=== PATIENT | male | born 1995 | race Caucasian/White ===

== ENCOUNTER 2016-09-22 15:23 | Emergency (ER) | payer OTHER ==
--- NOTE | 2016-09-22 15:29 | PDOC ---
Rapid Medical Evaluation Time Seen by Provider: 09/22/16 15:26 Medical Evaluation: 09/22/16 15:28 Otherwise healthy 20 year old male presenting with 3 days of right great toe "infection". No preceding injury. No fevers. V/s notable for P 105. -To FT for further evaluation.
[2016-09-22 15:32] VITALS: BP 152/73; PULSE 106; TEMP 98.6; BMI 21.1
--- NOTE | 2016-09-22 16:40 | PDOC ---
History of Present Illness - General Chief Complaint: Pain Stated Complaint: LT TOE INFECTION Time Seen by Provider: 09/22/16 15:26 History Source: Patient Exam Limitations: No Limitations - History of Present Illness Initial Comments: 09/22/16 19:58 Chief complaint: Right large toe on each side of toenail with yellowish discharge getting worse 3 days History of present illness: Patient is a 20-year-old male here today with tenderness on bilateral sides of his right large toenail with discharge that is yellowish and clear and slightly tender to touch. Patient reports that he cut his own toenails. Patient denies any numbness of the toe. 09/22/16 19:59 Timing/Duration: getting worse (rt. toenail inflammed large toe on each side with yellowish discharge ) Severity: moderate Associated Symptoms: reports: denies symptoms Past History - Past Medical History Allergies/Adverse Reactions: Allergies Allergy/AdvReac Type Severity Reaction Status Date / Time No Known Allergies Allergy Verified 09/22/16 15:29 Home Medications: Ambulatory Orders Ibuprofen 600 mg PO Q6H PRN #18 tablet MDD 4 09/22/16 Sulfamethoxazole/Trimethoprim [Bactrim DS -] 1 tab PO BID #13 tablet 09/22/16 Other medical history: DENIES. - Psycho/Social/Smoking Cessation Hx Suicidal Ideation: No Smoking History: Never smoked Review of Systems - Review of Systems Able to Perform ROS?: Yes Constitutional: No: Symptoms Reported HEENTM: No: Symptoms Reported Respiratory: No: Symptoms reported Cardiac (ROS): No: Symptoms Reported ABD/GI: No: Symptoms Reported : No: Symptoms Reported Integumentary: Yes: Other (granulated erythematous tissue noted rt. toe on each side of toenail with yellowish clear discharge) Neurological: No: Symptoms reported *Physical Exam - Vital Signs Last Vital Signs Temp Pulse Resp BP Pulse Ox 98.6 F 106 H 16 152/73 98 09/22/16 15:29 09/22/16 15:29 09/22/16 15:29 09/22/16 15:29 09/22/16 15:29 - Physical Exam General Appearance: Yes: Appropriately Dressed Respiratory/Chest: positive: Lungs Clear, Normal Breath Sounds Cardiovascular: positive: Regular Rhythm, Regular Rate, S1, S2 Vascular Pulses: Dorsalis-Pedis (R): 4+ Comments:: 09/22/16 16:41 Extremity: positive: Normal Range of Motion (rt.large toe) Integumentary: positive: Erythema (erythematous raised ( granulated ) skin laterally on each side of rt. first toe ) Neurologic: positive: Alert, Normal Response, Respond to painful stimul (rt. large toe), Responsive. negative: Numbness, Sensory Deficit (rt. first toe) Procedures - Consent Consent obtained: From Patient - Additional Procedures Progress: 09/22/16 16:43 Past right first toe around the toenail with normal saline 0.9% with hydrogen peroxide then irrigated with normal saline 0.9% is sterile telfa pad than DS dressing applied Medical Decision Making - Medical Decision Making 09/22/16 19:59 09/22/16 19:59 Patient is a 20-year-old male here today with tenderness on bilateral sides of his right large toenail with discharge that is yellowish and clear and slightly tender to touch. Patient reports that he cut his own toenails. Patient denies any numbness of the toe. Right large toenail ingrown toenail noted Plan: Cleansed right large toenail with saline 0.9% minutes with hydrogen peroxide then irrigated area with normal saline 0.9% dried area and applied Xeroform dressing with Telfa and Kane Bactrim DS one tab now than twice a day 7 days Patient to follow up with rolling machine operator automatic tomorrow Ibuprofen 600 mg by mouth then every 6 hours as needed for pain 09/22/16 20:00 *DC/Admit/Observation/Transfer Diagnosis at time of Disposition: Ingrowing toenail with infection - Discharge Dispostion Disposition: HOME Condition at time of disposition: Stable - Prescriptions Prescriptions: Sulfamethoxazole/Trimethoprim [Bactrim DS -] 1 tab PO BID #13 tablet Ibuprofen 600 mg PO Q6H PRN #18 tablet MDD 4 PRN Reason: Pain - Referrals Referrals: Ric Parsons MD [Primary Care Provider] - Cornelius Cheng MD [Staff Physician] - - Patient Instructions Additional Instructions: Follow Up with rolling machine operator automatic tomorrow Keep Dressing on toe and to use the rolling machine operator automatic tomorrow Return to emergency room if an increased redness around right toe or fever Patient voiced understanding of discharge instructions and all questions were answered
[2016-09-22] MEDS ORDERED: SULFAMETHOXAZOLE/TRIMETHOPRIM 800MG/160MG D.S. TABLET PO ONE (16:45)
[2016-09-22] MEDS ORDERED: SULFAMETHOXAZOLE/TRIMETHOPRIM 800MG/160MG D.S. TABLET ONE (17:16)
== END 2016-09-22 17:36 | disposition home or self-care (01) ==
LOC: JERFT 15:23
DX: L60.0 Ingrowing nail (principal); L08.9 Local infection of the skin and subcutaneous tissue, unspecified
CPT/HCPCS: 87070; 87186; 87205; 99281-25